=== PATIENT | male | born 1980 | race Caucasian/White ===

== ENCOUNTER 2019-08-30 09:47 | Emergency (ER) | payer OTHER ==
[2019-08-30 09:54] VITALS: BP 120/83; PULSE 86; TEMP 97.9; BMI 28.3
[2019-08-30] MEDS ORDERED: IBUPROFEN 600 MG TABLET (FP) PO ONE ×2 (11:29→11:40)
[2019-08-30] MEDS ORDERED: valACYclovir HCL 1000 MG TABLET PO ONE (11:29)
--- NOTE | 2019-08-30 11:50 | PDOC ---
History of Present Illness - General Chief Complaint: Rash Stated Complaint: NECK BLISTERS Time Seen by Provider: 08/30/19 11:10 History Source: Patient Exam Limitations: No Limitations Past History - Past Medical History Allergies/Adverse Reactions: Allergies Allergy/AdvReac Type Severity Reaction Status Date / Time No Known Allergies Allergy Verified 08/30/19 09:54 Home Medications: Ambulatory Orders Cyclobenzaprine HCl [Flexeril -] 10 mg PO TID 10/17/15 Gabapentin 300 mg PO TID 10/17/15 Sulfamethoxazole/Trimethoprim [Bactrim Ds Tablet] 1 each PO BID #22 tablet 10/21 Valacyclovir HCl [Valtrex -] 1,000 mg PO TID #20 tablet 08/30/19 Asthma: Yes COPD: No - Psycho Social/Smoking Cessation Hx Smoking History: Never smoked Information on smoking cessation initiated: No Hx Alcohol Use: No Drug/Substance Use Hx: No Hx Substance Use Treatment: No *Physical Exam - Vital Signs Last Vital Signs Temp Pulse Resp BP Pulse Ox 97.9 F 86 19 120/83 100 08/30/19 09:52 08/30/19 09:52 08/30/19 09:52 08/30/19 09:52 08/30/19 09:52 - Physical Exam General Appearance: No: Apparent Distress HEENT: positive: Other (R ear with no blisters noted, no rash along face) Integumentary: positive: Rash (papular rash with blisters along lateral aspect of R neck, extending into scalp). negative: Hives, Ecchymosis, Bruising Neurologic: positive: Alert, Normal Mood/Affect ED Treatment Course - Medications Given in the ED: ED Medications Discontinued Medications Generic Name Dose Route Start Last Admin Trade Name Libby PRN Reason Stop Dose Admin Ibuprofen 600 mg 08/30/19 11:29 08/30/19 11:40 Motrin - PO 08/30/19 11:30 600 mg ONCE ONE Administration Valacyclovir HCl 1,000 mg 08/30/19 11:29 08/30/19 11:41 Valtrex - PO 08/30/19 11:30 1,000 mg ONCE ONE Administration Medical Decision Making - Medical Decision Making 38 y/o M with hx of asthma presents with burning/itching/painful rash along R side of neck x 1 week. Mentions never had chickenpox as child, but is not completely certain. Denies fever, recent travel, sob, cp, ear pain. Concern for shingles based on exam Though >72 hrs onset of rash, given still new lesions developing Plan: Valtrex, motrin 08/30/19 11:45 Discharge - Discharge Information Problems reviewed: Yes Clinical Impression/Diagnosis: Shingles Qualifiers: Herpes zoster complications: without complications Qualified Code(s): B02.9 - Zoster without complications Condition: Stable Disposition: HOME - Admission No - Additional Discharge Information Prescriptions: Valacyclovir HCl [Valtrex -] 1,000 mg PO TID #20 tablet Prescription Drug Monitoring Program (I-STOP) results: I-STOP not reviewed - Follow up/Referral - Patient Discharge Instructions Patient Printed Discharge Instructions: DI for Shingles Additional Instructions: Thank you for choosing [facility]. It was a pleasure taking care of you. You may take Motrin 600 mg every 6 hours by mouth as needed for mild to moderate pain. Take Motrin with food. If it is itchy, you may take Benadryl as needed for itching. Benadryl can make you drowsy. Please be sure to take the Valtrex as prescribed Please realize this rash is contagious and can spread by touch and inhalation. Be careful around people and babies. The condition is contagious until the lesions have crusted over Return to the Emergency Department if your symptoms worsen or persist or have other concerning symptoms. - Post Discharge Activity
== END 2019-08-30 11:55 | disposition home or self-care (01) ==
LOC: JERFT 09:47
DX: B02.9 Zoster without complications (principal); J45.909 Unspecified asthma, uncomplicated
CPT/HCPCS: 99281-25

== ENCOUNTER 2020-12-20 14:55 | Emergency (ER) | payer OTHER ==
[2020-12-20 15:34] VITALS: BMI 30.2
[2020-12-20] MEDS ORDERED: SODIUM CHLORIDE 2,041 ML IV ONE (15:45)
[2020-12-20] MEDS ORDERED: ACETAMINOPHEN 1000 MG/100 ML VIAL (NON FORMULARY) IVPB ONE (15:52)
[2020-12-20] MEDS ORDERED: ACETAMINOPHEN INJECTION 100 ML IVPB ONE (16:22)
[2020-12-20 16:34] LABS: BASO % 1.5 % (0-2.0); EOS % 0.2 % (0-4.5); HEMATOCRIT 44.9 % (35.4-49); LYMPH % 18.5 % (8-40); MCH 29.8 pg (25.7-33.7); MCHC 33.5 g/dl (32.0-35.9); MEAN CELL VOLUME 88.9 fl (80-96); MONO % 8.7 % (3.8-10.2); NEUT % 71.1 % (42.8-82.8); PLATELET COUNT 138 K/MM3 (134-434); RBC 5.05 M/mm3 (4.00-5.60); RDW 13.4 % (11.9-15.9); WHITE BLOOD COUNT 4.4 K/mm3 (4.0-10.8)
[2020-12-20 16:40] LABS: ACTIVATED PTT 29.5 SECONDS (25.2-36.5)
[2020-12-20 16:42] LABS: ALBUMIN 4.1 g/dl (3.4-5.0); BILIRUBIN,TOTAL 0.4 mg/dl (0.2-1); CALCIUM 8.1 mg/dl (8.5-10); POTASSIUM 3.8 mmol/L (3.5-5.1); TOT PROT 7.3 g/dl (6.4-8.2)
[2020-12-20 16:44] LABS: INR 1.21 (0.82-1.09); PROTHROMBIN TIME (PATIENT) 13.4 SEC (10.2-13.0)
[2020-12-20 17:01] LABS: URIC ACID CRYSTALS 1+ /hpf (NONE SEEN)
[2020-12-20] MEDS ORDERED: KETOROLAC TROMETHAMINE 15 MG/ML VIAL IVPUSH ONE (17:35)
[2020-12-20] MEDS ORDERED: KETOROLAC TROMETHAMINE 15 MG/ML VIAL ONE (18:17)
[2020-12-20 18:33] VITALS: BP 105/71; PULSE 65
[2020-12-20 19:05] VITALS: TEMP 99.3
== END 2020-12-20 20:33 | disposition home or self-care (01) ==
LOC: FER 14:55
PROC: 3E033GC Introduction of Other Therapeutic Substance into Peripheral Vein, Percutaneous Approach (ICD-10-PCS; principal; 2020-12-20)
PROC: 3E0337Z Introduction of Electrolytic and Water Balance Substance into Peripheral Vein, Percutaneous Approach (ICD-10-PCS; principal; 2020-12-20)
DX: U07.1 COVID-19 (principal)
CPT/HCPCS: 36415; 71045-TC-FY; 74176-TC; 80053; 81003; 81015; 83605; 84484; 85025; 85610; 85730; 87040; 87086; 93005; 99285-25; C9803; J0131; U0003